=== PATIENT | male | born 1950 | race Caucasian/White ===

== ENCOUNTER 2020-10-22 13:10 | Day surgery (SDC) | payer OTHER ==
[~2020-10-22] VITALS: Ht 172.7 cm; Wt 76.5 kg
[~2020-10-22 13:10] MED LIST: Aspir 8181 MG; Aspirin EC81 MG PO; CALCIUM MAGNES1 EAC1 PO; Flunisolide25 ML; HYDCHL25; MULTIPLE VITAM1 EACH PO; SIMV5; TAMS.4ER; TAMS.4ER PO; Triamcinolone A15 G3; VALS80; Zestril40 MG PO; Zocor10 MG PO
[2020-10-22] MEDS ORDERED: HYDCHL25 PO (13:40)
--- NOTE | 2020-10-22 14:47 | NUR ---
10/22/20 1447 Shreya Long PROCEDURE ABORTED DUE TO BLEEDING AFTER POLYPECTOMY. 4 CLIPS PLACED.
[2020-11-26] MEDS ORDERED: ZOCOR20 MG PO (12:32)
[2020-11-26] MEDS ORDERED: Flonase 0.05% N16 GM (12:33)
== END 2020-10-22 15:23 | disposition home or self-care (01) ==
LOC: ORSCSDS 13:10
PROVIDERS: Internal Medicine Gastroenterology
PROC: 0DBL8ZX Excision of Transverse Colon, Via Natural or Artificial Opening Endoscopic, Diagnostic (ICD-10-PCS; principal; 2020-10-22 14:30)
DX: Z12.11 Encounter for screening for malignant neoplasm of colon (principal); Z86.010 Personal history of colon polyps; Z80.0 Family history of malignant neoplasm of digestive organs; D12.3 Benign neoplasm of transverse colon; K64.8 Other hemorrhoids; G47.33 Obstructive sleep apnea (adult) (pediatric); Z87.891 Personal history of nicotine dependence; Z79.899 Other long term (current) drug therapy; I10 Essential (primary) hypertension
CPT/HCPCS: 88305; J2704; J7120

== ENCOUNTER 2021-03-08 11:16 | Day surgery (SDC) | payer OTHER ==
[~2021-03-08] VITALS: Ht 172.7 cm; Wt 75.4 kg
[~2021-03-08 11:16] MED LIST changes: +Flonase 0.05% N16 GM; +HYDCHL25 PO; +ZOCOR20 MG PO
--- NOTE | 2021-03-08 13:20 | NUR ---
03/08/21 1320 Clifton Weiss 1222: BP 126/61 HR 64 O2 98% 1227: BP 98/53 HR 62 O2 100% 1233: BP 95/52 HR 70 O2 99% 1239: BP 90/51 HR 68 O2 99% 1245: BP 93/55 HR 69 O2 99% 1254: BP 93/54 HR 65 O2 99% VITALS DURING PROCEDURE.
== END 2021-03-08 13:24 | disposition home or self-care (01) ==
LOC: ORSCSDS 11:16
PROVIDERS: Internal Medicine Gastroenterology
PROC: 0DBL8ZX Excision of Transverse Colon, Via Natural or Artificial Opening Endoscopic, Diagnostic (ICD-10-PCS; principal; 2021-03-08 12:45)
DX: Z12.11 Encounter for screening for malignant neoplasm of colon (principal); Z86.010 Personal history of colon polyps; D12.3 Benign neoplasm of transverse colon; Z80.0 Family history of malignant neoplasm of digestive organs; K57.30 Diverticulosis of large intestine without perforation or abscess without bleeding; K64.8 Other hemorrhoids; G47.33 Obstructive sleep apnea (adult) (pediatric); Z79.899 Other long term (current) drug therapy
CPT/HCPCS: 88305; J0330; J0461; J2405; J2704; J7120